=== PATIENT | female | born 1945 | race Caucasian/White ===

== ENCOUNTER → 2017-06-30 | Outpatient (CLI) | payer MEDICARE, OTHER | END | disposition home or self-care (01) | LOC: LAB.O 09:27 → YCFC.O 09:27 | DX: I10 Essential (primary) hypertension (principal) ==

== ENCOUNTER → 2017-07-24 | Outpatient (CLI) | payer MEDICARE, OTHER ==
--- NOTE | 2017-07-25 02:38 | CT ---
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 PROCEDURE: CT HEAD WITHOUT THEN WITH IV CONTRAST. INDICATION: DIZZINESS AND GIDDINESS. COMPARISON: None. TECHNIQUE: Axial CT images of the head were acquired before and after administration of intravenous contrast. This exam was performed according to our departmental dose-optimization program which includes use of Automated Exposure Control, adjustment of the mA and/or kV according to patient size and/or use of iterative reconstruction technique. FINDINGS: No acute intracranial hemorrhage. Bentley white matter differentiation is preserved. No mass effect or midline shift. No abnormal intracranial enhancement. Mild generalized brain volume loss. Unremarkable orbits. The paranasal sinuses are well aerated. Mastoid air cells are clear. Intact calvarium. IMPRESSION: No acute intracranial abnormality. No abnormal intracranial enhancement. Mild generalized brain volume loss. Electronically signed by: Alexandre Vidal MD 07/25/2017 2:[address] [facility]
== END | disposition home or self-care (01) ==
LOC: CT 13:33
DX: R42 Dizziness and giddiness (principal)

== ENCOUNTER 2018-04-12 09:33 | Inpatient (IN) | payer MEDICARE, OTHER ==
--- NOTE | 2018-04-12 10:21 | RAD ---
EXAM DESCRIPTION: Chest,1 View CLINICAL HISTORY: 72 years Female, FALL COMPARISON: None. TECHNIQUE: AP portable chest. FINDINGS: Heart size is prominent with normal pulmonary vascularity. No consolidating infiltrate. No pulmonary mass or worrisome nodule. No pneumothorax or pleural effusion. Bones are unremarkable. IMPRESSION: No acute process is identified in the chest. Electronically signed by: Santhosh Becerra MD 04/12/2018 10:20 AM CDT
--- NOTE | 2018-04-12 10:49 | ED.PDOC ---
History of Present Illness - General Chief Complaint: GI Problem Stated Complaint: rectal bleeding Time Seen by Provider: 04/12/18 10:44 Source: patient Exam Limitations: no limitations - History of Present Illness Initial Comments: Marion Luevano 72 y/o female brought by EMS after she called them up for reported rectal bleeding.She stated that she went to the bathroom and had bowel movement but she was unable to hold his BM and she just had stool all over the floor thinking it was diarrhea and when she turned on the light noted dark red blood all over then immediately called ambulance services.Had colonoscopy about 10 days ago at [facility] ccenterDenies hematemesis but feels weak all over. Timing/Duration: 1-3 hours Severity: moderate Improving Factors: nothing Worsening Factors: nothing Associated Symptoms: weakness Allergies/Adverse Reactions: Allergies NO KNOWN ALLERGY Allergy (Verified 04/12/18 09:50) Home Medications: Ambulatory Orders Amlodipine Besylate 5 mg PO DAILY 04/12/18 Aspirin [Aspirin EC] 81 mg PO DAILY 04/12/18 Atorvastatin Calcium [Lipitor] 20 mg PO DAILY 04/12/18 Gabapentin 800 mg PO BID 04/12/18 Hydrochlorothiazide 25 mg PO DAILY 04/12/18 Valacyclovir HCl 1,000 mg PO DAILY 04/12/18 Review of Systems - Review of Systems Constitutional: States: no symptoms reported EENTM: States: no symptoms reported Respiratory: States: no symptoms reported Cardiology: States: no symptoms reported Gastrointestinal/Abdominal: States: see HPI Genitourinary: States: no symptoms reported Musculoskeletal: States: no symptoms reported Skin: States: no symptoms reported Neurological: States: no symptoms reported Past Medical History (General) - Patient Medical History Hx Stroke: No Hx Asthma: No Hx Cardiac Disorders: No Hx Congestive Heart Failure: No Hx Hypertension: Yes Hx Diabetes: No Hx Gastroesophageal Reflux: No Surgical History: cholecystectomy, other - hysterectomy;colonoscopy - Vaccination History Hx Pneumococcal Vaccination: Yes - Social History Hx Tobacco Use: No Hx Alcohol Use: No Hx Substance Use: No Hx Substance Use Treatment: No Hx Depression: Yes Hx Physical Abuse: No Hx Emotional Abuse: No - Activities of Daily Living Patient Lives Alone: Yes Grooming Ability: Independent Eating (Feeding) Ability: Independent Toileting Ability: Independent Family Medical History - Family History Mother Hx Family Cancer: Yes - dad-colon ca;mom-larynx;brother-gallbladder;sister -skin Physical Exam - Physical Exam General Appearance: Alert, Comfortable, No apparent distress Eye Exam: bilateral normal Ears, Nose, Throat: hearing grossly normal, normal ENT inspection Neck: non-tender, full range of motion, supple Respiratory: chest non-tender, lungs clear, normal breath sounds Cardiovascular/Chest: normal peripheral pulses, regular rate, rhythm, no murmur Peripheral Pulses: radial,right: 2+, radial,left: 2+ Gastrointestinal/Abdominal: non tender, soft, no organomegaly Rectal Exam: normal rectal tone, heme positive stool Back Exam: normal inspection, no CVA tenderness, no vertebral tenderness Extremity: no pedal edema, no calf tenderness Neurologic: alert, oriented x 3 Skin Exam: normal color, warm/dry Progress - Progress Progress: 04/12/18 10:54 Vital Signs - 8 hr 04/12/18 04/12/18 09:33 10:35 Temperature 97.2 F L Pulse Rate [ 91 H 87 right brachial] Respiratory 16 16 Rate Blood Pressure 113/60 123/40 [right brachial ] O2 Sat by Pulse 99 98 Oximetry 04/12/18 12:33 D/W Dr. MARIN-GI specialist performed colonoscopy advised to keep her for obs here for serial h/h in hospital no procedure needed at this time and if any further bleeding # [id number] - Results/Orders Results/Orders: Laboratory Tests 04/12/18 04/12/18 04/12/18 10:00 10:00 10:09 WBC 8.4 RBC 2.59 L Hgb 9.0 L Hct 26.3 L MCV 101.7 H MCH 34.7 H MCHC 34.0 RDW 13.0 Plt Count 163 MPV 9.2 Absolute Neuts (auto) 7.70 H Absolute Lymphs (auto) 0.40 L Absolute Monos (auto) 0.30 Absolute Eos (auto) 0.00 Absolute Basos (auto) 0.00 Neutrophils % 91.5 H Lymphocytes % 4.4 L Monocytes % 3.9 Eosinophils % 0.0 L Basophils % 0.2 Sodium 142 Potassium 3.5 L Chloride 109 Carbon Dioxide 24 Anion Gap 12.5 BUN 23 H Creatinine 0.53 L BUN/Creatinine Ratio 43.4 H Random Glucose 137 H Serum Osmolality 288.9 Calcium 7.9 L Stool Occult Blood Patient ABO/Rh A POSITIVE 04/12/18 11:10 WBC RBC Hgb Hct MCV MCH MCHC RDW Plt Count MPV Absolute Neuts (auto) Absolute Lymphs (auto) Absolute Monos (auto) Absolute Eos (auto) Absolute Basos (auto) Neutrophils % Lymphocytes % Monocytes % Eosinophils % Basophils % Sodium Potassium Chloride Carbon Dioxide Anion Gap BUN Creatinine BUN/Creatinine Ratio Random Glucose Serum Osmolality Calcium Stool Occult Blood Positive Patient ABO/Rh - EKG/XRAY/CT XRAY: chest - no acute abnormalities noted CT Ordered: Yes - colonic diverticulosis,no other abormalities Departure - Departure Clinical Impression: Melena Time of Disposition: 13:14 Disposition: Admit Patient Condition: Fair Departure Forms: Patient Portal Self Enrollment Home Medications: Ambulatory Orders Amlodipine Besylate 5 mg PO DAILY 04/12/18 Aspirin [Aspirin EC] 81 mg PO DAILY 04/12/18 Atorvastatin Calcium [Lipitor] 20 mg PO DAILY 04/12/18 Gabapentin 800 mg PO BID 04/12/18 Hydrochlorothiazide 25 mg PO DAILY 04/12/18 Valacyclovir HCl 1,000 mg PO DAILY 04/12/18 Decision To Admit - Decistion To Admit Decision to Admit Reason: Admit from ER Decision to Admit Date: 04/12/18 - D/W Nisreen Odonnell -KARYN/ Hospitalist Decision to Admit Time: 13:14
--- NOTE | 2018-04-12 11:58 | CT ---
EXAM DESCRIPTION: Abdoment/Pelvis w/o Contrast CLINICAL HISTORY: rectal bleeding COMPARISON: None Available TECHNIQUE: CT of the abdomen and Pelvis was performed without IV contrast. This exam was performed according to our departmental dose-optimization program, which includes automated exposure control, adjustment of the mA and/or kV according to patient size and/or use of iterative reconstruction technique. FINDINGS: No lung base abnormality. No pneumoperitoneum or ascites. There are a few nonenlarged left retroperitoneal lymph nodes. The gallbladder is surgically absent. The liver, spleen, pancreas, adrenals and kidneys are unremarkable for noncontrast technique. No dilated small bowel loops or mesenteric inflammation. No bladder wall thickening. The uterus and ovaries are not seen, correlate with surgical history. Evaluation of the colon and rectum is limited by lack of oral contrast on this exam. No definite rectal wall thickening or perirectal inflammation. Colonic diverticulosis is noted without diverticulitis. Normal appendix. No concerning bone lesion. Degenerative disc disease is present at L4-5. IMPRESSION: Limited evaluation of the colon related to lack of oral and IV contrast without definite colonic wall thickening or other abnormality to explain rectal bleeding. If symptoms persist or worsen, colonoscopy should be considered for further evaluation. Colonic diverticulosis without evidence of diverticulitis. Electronically signed by: Michelet Tamayo MD 04/12/2018 11:57 AM CDT
--- NOTE | 2018-04-12 13:47 | HP ---
SUPERVISING PHYSICIAN: Jose M King M.D. CHIEF COMPLAINT: Blood in stool. HISTORY OF PRESENT ILLNESS: This is a 72 year-old female patient who has lived in [facility] for approximately 1 year. Her primary care physician is Brooke Timmons in [place]. During the night she woke up and thought she had had a fairly significant bout of diarrhea. She said she could not make it to the toilet and she actually had an accident on the floor. Her sister noticed that there was blood in the stool and so later in the morning she decided to call EMS and was brought to the Emergency Room for rectal bleeding. She had a colonoscopy a little over a week ago at [facility] and per the E. R. doctor he spoke with the lead material handler, Dr. Clark, and there was no significant bleeding noted on her colonoscopy. Initially her hemoglobin was 9 and hematocrit was 26.3. Her H&H was rechecked approximately 3 hours later and it was 8.9 and 26.3. Her potassium was slightly low at 3.5 and her BUN was 23 with creatinine of 0.53. Calcium was 7.9. She did have a positive stool for occult blood. Chest x-ray was done and she had no acute process identified. A CT of the abdomen showed limited evaluation of the colon related to lack of oral or IV contrast without definite colonic wall thickening or other abnormality to explain rectal bleeding. It showed colonic diverticulosis without evidence of diverticulitis. I was called for hospital admission. PAST MEDICAL HISTORY: 1. Lower extremity neuropathy. 2. Hypertension. 3. Hyperlipidemia. PAST SURGICAL HISTORY: 1. Hysterectomy. 2. Cholecystectomy. CURRENT MEDICATIONS: As per the EMR and awaiting verification. ALLERGIES: NO KNOWN DRUG ALLERGIES. FAMILY HISTORY: SOCIAL HISTORY: She lives at [facility]. She denies any smoking, ETOH or illicit drug use. REVIEW OF SYSTEMS: GENERAL: Denies fatigue, fever or weight changes. HEENT: Denies sinus symptoms, ear pain, vision changes, sore throat or sinus symptoms. RESPIRATORY: Denies coughing, wheezing or shortness of breath. CARDIAC: Denies palpitations, tachycardia or chest pain. GASTROINTESTINAL: As per history of present illness. GENITOURINARY: Denies hematuria, polyuria, dysuria. MUSCULOSKELETAL: Denies arthralgias or myalgias. SKIN: Denies lesions or rashes. NEUROLOGIC: Denies headache, seizures or dizziness. PHYSICAL EXAMINATION: VITAL SIGNS: Temperature 99.5, pulse 78, blood pressure 116/67, respiratory rate 20, O2 sat 99% on room air. GENERAL: This is a 72 year-old female patient lying in her hospital bed. She is in no acute distress. HEENT: Normocephalic and atraumatic. Pupils are equal and reactive. Oropharynx is clear. NECK: Supple without mass. RESPIRATORY: Essentially clear to auscultation bilaterally. CHEST: There is equal rise and fall of the chest with inspiration and expiration. CARDIOVASCULAR: Regular rate and rhythm. GASTROINTESTINAL: Abdomen is soft, nondistended, non-tender. Bowel sounds are positive. RECTAL: Exam shows no evidence of external hemorrhoids. EXTREMITIES: No cyanosis, clubbing or edema. NEUROLOGIC: She is awake, alert and oriented times three. LABORATORY: Labs and films are as per History of Present Illness. ASSESSMENT: 1. Lower gastrointestinal bleed with recent colonoscopy and removal of several polyps. 2. Hypertension. 3. Lower limb neuropathy. 4. Hyperlipidemia. 5. Chronic shingles. 6. Herpes. PLAN: We will place the patient in Observation. She has been typed and crossed for blood transfusion. We will do serial H&Hs and monitor for any bleeding. She has not had any recurrent stools with blood in it, although she was guaiac positive. She may require 2 units of packed red cells and hopefully we can get her discharged for close followup with her GI physician early next week. It is very difficult to ascertain if the GI bleed was bright red or darker red as I have heard several stories, but it may be helpful to get an EGD in the near future. Will continue to monitor her closely and follow as needed. Dr. King is the collaborating physician available for consultation. #[id number] [facility] CENTERScotty
[2018-04-12] MEDS ORDERED: ONDANSETRON INJ 4 MG/2 ML VIAL IV PRN (13:51)
[2018-04-12] MEDS ORDERED: SODIUM CHLORIDE 0.9% (FLUSH) 10 ML SYG IV PRN (13:51)
[2018-04-12] MEDS ORDERED: ACETAMINOPHEN 325 MG TAB PO PRN (13:51)
[2018-04-12] MEDS ORDERED: IV SET AND CAP CHANGE INJ INJ SCH (14:00)
[2018-04-12] MEDS ORDERED: PANTOPRAZOLE SODIUM IV 40 MG VIAL IV SCH (14:00)
[2018-04-12] MEDS ORDERED: GABAPENTIN 400 MG CAP PO SCH (21:00)
[2018-04-12] MEDS ORDERED: diphenhydrAMINE HCL 50 MG/ML VIAL IV ONE (21:41)
[2018-04-12] MEDS ORDERED: ACETAMINOPHEN 325 MG TAB PO ONE (21:41)
[2018-04-12] MEDS ORDERED: diphenhydrAMINE HCL 50 MG/ML VIAL ONE (21:44)
[2018-04-12] MEDS ORDERED: FUROSEMIDE INJ 40 MG/4 ML VIAL IV ONE (21:50)
[2018-04-12] MEDS ORDERED: SODIUM CHLORIDE 0.9% 1000ML 1,000 ML IVS ONE (21:59)
[2018-04-12] MEDS ORDERED: SODIUM CHLORIDE 0.9% 500ML 500 ML IVS SCH (22:00)
[2018-04-12] MEDS ORDERED: SODIUM CHLORIDE 0.9% 1000ML 1,000 ML ONE (22:05)
[2018-04-12] MEDS ORDERED: SODIUM CHLORIDE 0.9% 500ML 500 ML ONE (22:11)
[2018-04-12] MEDS ORDERED: FUROSEMIDE INJ 40 MG/4 ML VIAL ONE (23:53)
[2018-04-13 00:37] VITALS: O2SAT 95
[2018-04-13 00:54] VITALS: BP 134/78; TEMP 98.9
[2018-04-13] MEDS ORDERED: amLODIPine BESYLATE 5 MG TAB PO SCH (09:00)
[2018-04-13] MEDS ORDERED: VALACYCLOVIR HCL 1000 MG PO SCH (09:00)
[2018-04-13] MEDS ORDERED: hydroCHLOROthiazide 25 MG TAB PO SCH (09:00)
[2018-04-13] MEDS ORDERED: ATORVASTATIN 20 MG TAB PO SCH (09:00)
--- NOTE | 2018-04-13 11:20 | DS ---
SUPERVISING PHYSICIAN: Jose M King M.D. DISCHARGE DIAGNOSIS: 1. Lower gastrointestinal bleed with colonoscopy approximately 1 week ago with removal of several polyps. 2. Hypertension. 3. Lower limb neuropathy. 4. Hyperlipidemia. 5. Chronic shingles. 6. Herpes. HISTORY OF PRESENT ILLNESS: This is a 72 year-old female patient who presented to the Emergency Room today after she woke up early this morning and was incontinent of stool. She said she just couldn't hold her bowel movement and actually found blood in her stool approximately 1 week ago. She had a colonoscopy per Dr. Clark in [place] and he removed several polyps. In the Emergency Room today her initial hemoglobin was 9 and hematocrit was 26.3. Approximately 3 hours later her H&H was checked again and it was 8.9 and 26.3. Potassium was slightly low at 3.5, BUN 23, creatinine 0.53. Calcium was 7.9. She did have a positive stool for occult blood. Chest x-ray was done and showed no acute process identified. A CT of the abdomen showed limited evaluation of the colon related to lack of oral or IV contrast without definite colonic wall thickening or other abnormalities to explain rectal bleeding. It showed colonic diverticulosis without evidence of diverticulitis. I was called for hospital admission. HOSPITAL COURSE: The patient was initially placed in Observation and serial H& Hs were ordered. Her next H&H was 8.1 and 24.1. Vital signs remained stable. Blood pressure dropped to 100/61 with a repeat of 92/62 at approximately 8:30 PM. She also complained of some weakness and dizziness. During her stay she had 2 bowel movements of which both had a small to moderate amount of dark red blood noted. She had been typed and crossed for 2 units of blood and those were started after her 9:00 PM hemoglobin and hematocrit were 7.9 and 2.5. She also received 40 mg of Protonix IV push and due to the lack of GI intervention, I called her GI doctor, Dr. Clark, and he said that he was not salesperson flying squad but would like for her to be transferred to [facility] in [place], [place]. After speaking to [facility], they had no GI available at [place], so she was accepted at [facility] in [place]. She was accepted by Dr. Carmichael at [facility]. Their GI doctor will be Dr. Jackson. DISCHARGE PLAN: the patient will be discharged to [facility] in [place], [place]. She will go via [facility]. The hospitalist is Dr. Mirza and the GI doctor is Dr. Jackson. She is in fair condition. Her vital signs are stable at this time. She has received 1 unit of packed red blood cells and prior to her transfer to [facility], we will start her second unit of blood. All of her records and labs and films will be accompanying the patient. After discharge, it is recommended that she get a local physician. I believe her primary care physician is Brooke Timmons in [place]. She does not have a local physician and she does live at [facility] for about the last year. Her discharge medications are: 1. Gabapentin. 2. Amlodipine. 3. Hydrochlorothiazide. 4. Valacyclovir. 5. Atorvastatin. 6. Aspirin, although it has been held during this hospital visit. #[id number] [facility]
== END 2018-04-13 00:51 | disposition short-term general hospital (02) | DRG 379 ==
LOC: ER 09:33 → INTOOBSV 13:46 → MS 13:46 → OBSVTOIN 21:20
PROVIDERS: ADMIT Nurse Practitioner Acute Care; ATTEND Nurse Practitioner Acute Care
PROC: 30233N1 Transfusion of Nonautologous Red Blood Cells into Peripheral Vein, Percutaneous Approach (ICD-10-PCS; principal; 2018-04-12)
PROC: 30233N1 Transfusion of Nonautologous Red Blood Cells into Peripheral Vein, Percutaneous Approach (ICD-10-PCS; 2018-04-13)
DX: K92.1 Melena (principal); I10 Essential (primary) hypertension; G62.9 Polyneuropathy, unspecified; E78.5 Hyperlipidemia, unspecified; E87.6 Hypokalemia; K57.30 Diverticulosis of large intestine without perforation or abscess without bleeding; B02.9 Zoster without complications; Z79.82 Long term (current) use of aspirin; Z79.899 Other long term (current) drug therapy; Z98.890 Other specified postprocedural states